=== PATIENT | male | born 1995 | race American Indian/Alaskan Native ===

== ENCOUNTER 2017-11-18 16:00 | Emergency (ER) | payer SELFPAY ==
[2017-11-18 16:13] VITALS: BP 132/70
[2017-11-18 19:21] LABS: Bilirubin,Urine NEG (Negative); Blood,Urine NEG (Negative); Color,Urine Yellow (Yellow); Protein,Urine <15 mg/dL mg/dL (Negative); Urobilinogen,Urine < 2.0 mg/dL (<2.0)
--- NOTE | 2017-11-18 20:12 | Emergency Department Report ---
Chief Complaint: Urogenital-Male Stated Complaint: GENITAL PAIN Time Seen by Provider: 11/18/17 18:45 - HPI History of Present Illness: This is a 21-year-old male nontoxic, well nourished in appearance, no acute signs of distress presents to the ED with c/o of penile discomfort. Patient stated he wants to be tested for STD. Patient stated he was diagnosed with chlamydia in May 2017 with similar symptoms and was treated. Patient denies any penile lesions or ulcers. Patient denies any testicular pain or swelling, fever, chills, headache, nausea, vomiting, chest pain, shortness of breathe, abdominal pain, or back pain. Patient denies any allergies or PMH. - Exam Vital Signs: Vital Signs 11/18/17 16:08 Temperature 97.9 F Pulse Rate 68 Respiratory 14 Rate Blood Pressure 132/70 O2 Sat by Pulse 100 Oximetry Physical Exam: GENERAL: The patient is a well-developed, well-nourished in no apparent distress. Patient is alert and acting appropriately for age. Alert and oriented 3, no apparent distress, normal gait, atraumatic. LUNGS: Clear to auscultation. Non labor breathing. No intercostal retractions. Symmetrical with respiration, no wheezing, no rales, or crackles. HEART: Regular rate and rhythm without murmur, rubs or gallops. No reproducible. S1, S2 present, regular rate and rhythm without murmur, no rubs, no gallops. ABDOMEN: Soft, nontender, and nondistended. Positive bowel sounds. No hepatosplenomegaly was noted. No guarding or rebound tenderness, negative epigastric bruit. Negative psoas sign, negative yanes sign, negative McBurneys sign MSE screening note: Focused history and physical exam performed. Due to findings the following was ordered: ED Medical Decision Making - Medical Decision Making This is a 21-year-old male that presents with nonmedical emergency. Patient is stable and was examined by me. UA within normal limits. Patient is asymptomatic and denies any symptoms. Patient states he just wants to be tested for STD. [employer] has approached patient for a co-pay but patient refused. I will refer the patient [facility] health [facility]. At time of discharge, the patient does not seem toxic or ill in appearance. No acute signs of distress noted. Patient agrees to discharge treatment plan of care. No further questions noted by the patient. ED Disposition for MSE Clinical Impression: Possible exposure to STD Disposition: MED SCREENING EXAM-LEFT Is pt being admited?: No Condition: Stable Additional Instructions: Follow-up with a primary care doctor in 3-5 days or if symptoms worsen and continue return to emergency room as soon as possible. Referrals: PRIMARY CARE, [Primary Care Provider] - 3-5 Days SAI ODONNELL MD [Staff Physician] - 3-5 Days [facility] [Outside] - 3-5 Days [facility] [Outside] - 3-5 Days [facility] [Referring] - 3-5 Days Forms: Work/School Release Form(ED)
== END 2017-11-18 20:05 | disposition left against medical advice (07) ==
LOC: ED 16:00
DX: N48.89 Other specified disorders of penis (principal)
CPT/HCPCS: 81001; 87591; 99282